=== PATIENT | female | born 1975 ===

== ENCOUNTER 2018-11-15 12:39 | Emergency (ER) | payer SELFPAY ==
--- NOTE | 2018-11-15 12:47 | UC ---
Allergic Reaction HPI - HPI Summary HPI Summary: 43 yo female that presents about 20 minutes after giving herself an epi shot Has reacted to spicey foods in past...today's episode after eating two bites of a spicey meal at a restaurant had anaphylatic reaction mos ago saw welding machine assembler in [place] this reaction not as bad felt throat tightening and gave herself epi feels improved on arrival her had tongue edema with her first episode as well as chest tightness no rash or pruritis - History of Current Complaint Stated Complaint: ALLERGIC REACTION Hx Obtained From: Patient Onset/Duration: Sudden Onset, Lasting Minutes Severity Initially: Moderate Severity Currently: Mild Pain Intensity: 0 Location: Discrete @ - throat tightness Aggravating Factor(s): Nothing Alleviating Factor(s): Epinephrine Associated Signs And Symptoms: Positive: Throat Tightening. Negative: Abdominal Pain, Chest Pain, Cough Wheezing, Diaphoresis, Lightheadedness, Nausea , Rash, Syncope, Vomiting - Allergies/Home Medications Allergies/Adverse Reactions: Allergies Allergy/AdvReac Type Severity Reaction Status Date / Time cumin Allergy Anaphylatic Uncoded 11/15/18 12:41 Shock moreno Allergy Anaphylatic Uncoded 11/15/18 12:41 Shock PMH/Surg Hx/FS Hx/Imm Hx Previously Healthy: Yes - Family History Known Family History: Positive: Hypertension Review of Systems All Other Systems Reviewed And Are Negative: Yes Constitutional: Positive: Negative Skin: Positive: Negative Eyes: Positive: Negative ENT: Positive: Other - THROAT TIGHTNESS Respiratory: Positive: Negative Cardiovascular: Positive: Negative Gastrointestinal: Positive: Negative Genitourinary: Positive: Negative Motor: Positive: Negative Neurovascular: Positive: Negative Musculoskeletal: Positive: Negative Neurological: Positive: Negative Psychological: Positive: Negative Physical Exam Triage Information Reviewed: Yes Appearance: Well-Appearing, Other: - tremors Vital Signs Reviewed: Yes Eyes: Positive: Conjunctiva Clear ENT: Positive: Normal ENT inspection, Uvula midline, Other - no stridor. Negative: Pharyngeal erythema, Nasal congestion, Nasal drainage, Trismus, Muffled voice, Hoarse voice Dental Exam: Normal Neck: Positive: Supple, Nontender, No Lymphadenopathy Respiratory: Positive: Lungs clear, Normal breath sounds, No respiratory distress, No accessory muscle use Cardiovascular: Positive: RRR, No Murmur Musculoskeletal: Positive: ROM Intact, No Edema Neurological: Positive: Alert Psychological Exam: Normal Skin Exam: Normal Skin: Negative: Rashes Allergic Reaction Course/Dx - Course Course Of Treatment: given po steroids and antihistamines observed at time of d/c patient was back to her normal self advised to see an welding machine assembler when she gets to her new home in [place] advised to avoid known triggers - Differential Dx/Diagnosis Provider Diagnosis: Anaphylaxis Discharge - Sign-Out/Discharge Documenting (check all that apply): Patient Departure All imaging exams completed and their final reports reviewed: No Studies - Discharge Plan Condition: Stable Disposition: HOME Prescriptions: EPINEPHrine [Epipen 2-Pa] 0.3 mg IM ONCE PRN #1 inj PRN Reason: Allergy Symptoms hydrOXYzine HCL TAB* [Atarax TAB*] 25 mg PO QID #4 tab predniSONE [Deltasone 20 MG TAB] 40 mg PO DAILY #6 tab Patient Education Materials: Anaphylaxis (ED) Additional Instructions: call for any question [phone] return for any concerns I suggest you see an welding machine assembler when you get back to [place] take predisone 2 pills every AM for 3 days take hydroxyzine one 4x day (#4) this is an antihistamine and may cause drowsiness - Billing Disposition and Condition Condition: STABLE Disposition: Home
[2018-11-15] MEDS ORDERED: predniSONE TAB* 20 MG PO ONE (12:48)
[2018-11-15] MEDS ORDERED: hydrOXYzine HCL TAB* 25 MG PO ONE (12:48)
== END 2018-11-15 13:49 | disposition home or self-care (01) ==
LOC: UCEAST 12:39
DX: T78.09XA Anaphylactic reaction due to other food products, initial encounter (principal); X58.XXXA Exposure to other specified factors, initial encounter; Y93.89 Activity, other specified; Y92.9 Unspecified place or not applicable; Y99.8 Other external cause status
CPT/HCPCS: 99202; A9270-GY; G0463; J7512